=== PATIENT | male | born 1945 | race Caucasian/White ===

== ENCOUNTER 2020-06-16 07:43 | Day surgery (SDC) | payer OTHER, BC ==
[2020-06-11 15:06] VITALS: BMI 19.8
[2020-06-16] MEDS ORDERED: PROPOFOL 20 ML ONE ×3 (07:46)
[2020-06-16] MEDS ORDERED: LIDOCAINE HCL/PF 2% SDV 5ML VIAL ONE (07:46)
--- OUTSIDE RECORDS SUMMARY | 2020-06-16 07:48 | XMS ---
:1945 Author Organization [facility] Team Providers Name Role Phone TEETEE ALDANA Unavailable Unavailable CATHOLIC, HUMBRENT Unavailable Unavailable STAFF, DOCTOR NOT ON Unavailable Unavailable ASHLEY JAMES Unavailable Unavailable SEITERSILVANO Unavailable Unavailable Re-disclosure Warning The records that you are about to access may contain information from federally- assisted alcohol or drug abuse programs. If such information is present, then the following federally mandated warning applies: This information has been disclosed to you from records protected by federal confidentiality rules (42 CFR part 2). The federal rules prohibit you from making any further disclosure of this information unless further disclosure is expressly permitted by the written consent of the person to whom it pertains or as otherwise permitted by 42 CFR part 2. A general authorization for the release of medical or other information is NOT sufficient for this purpose. The Federal rules restrict any use of the information to criminally investigate or prosecute any alcohol or drug abuse patient.The records that you are about to access may contain highly sensitive health information, the redisclosure of which is protected by Article 27-F of the [facility] Public Health law. If you continue you may haveaccess to information: Regarding HIV / AIDS; Provided by facilities licensed or operated by the [facility] Office of Mental Health; or Provided by the [facility] Office for People With Developmental Disabilities. If such information is present, then the following [facility] mandated warning applies: This information has been disclosed to you from confidential records which are protected by state law. State law prohibits you from making any further disclosure of this information without the specific written consent of the person to whom it pertains, or as otherwise permitted by law. Any unauthorized further disclosure in violation of state law may result in a fine or nursing home sentence or both. A general authorization for the release of medical or other information is NOT sufficient authorization for further disclosure. Allergies and Adverse Reactions Type Description Substance Reaction Status Data Source(s ) Drug allergy Penicillins Penicillins Unknown [facility] Corpor[facility] on Drug allergy Penicillins Penicillins UNKNOWN [facility] Hospital Encounters Encounter Providers Location Date Indications Data Source(s ) Outpatient Attender: MEDHAT, [facility]05[facility]2020 [facility] re CATHOLIC, [facility] [employer] HUMAYUNReferrer: SILVANO MELÉNDEZ D69.6 Outpatient Attender: JACOB 02/01/2020 04:41:00 Z01.84 [facility] ThibodeauxAdmitter: [facility] ASHLEY JAMES Corporatio n E.Referrer: ASHLEY JAMES Z01.84 Outpatient Attender: CATHOLIC, 01/28/2020 12:25:00 [facility]69[facility]6 [facility] PM EDT H ealth Care HUMAYUNReferrer: MEDHAT [employer] D69.6 Outpatient Attender: MEDHAT, 01/28/2020 12:18:00 PM D69.6 [facility] rporation D69.6 Outpatient 01/03/2020 06:51:[address]T [address] [facility] N40.3 Outpatient Attender: MEDHAT, 10/30/2019 11:25:00 C[facility] EST [facility] KARENReferrer: MEDHAT, Co rporation SILVANO C96.6 Outpatient Attender: MEDHAT, 10/15/2019 12:58:00 D69.6 [facility] SEITER[facility] PM EST [facility] KARENReferrer: MEDHAT, Co rporation SILVANO D69.6 Outpatient Attender: MEDHAT, 09/18/2019 03:13:00 D69.6 [facility] CATHOLIC, PM EST Hea lth Care HUMAYUNReferrer: Pj MELÉNDEZ D69.6 Outpatient Attender: DOCTOR 12/28/2018 06:54:00 AM N403,BP [facility] STAFF EDT Hospital N403,BPH Outpatient Attender: KATYA, 12/11/2018 I25.10,I71.2 [facility] DERICHERMANAdmitter: KATYA, 06:00:00 AM EDT Health Care JOUAReferrer: Shirley ALDANA orporation TEETEE I25.10,I71.2 Insurance Providers Payer name Policy type Policy ID Covered Covered constitution party's Policy P danisha / Coverage constitution party ID relationship to [employer] [facility] ormation type lewis BC PPO [id number] [place] [id number] MEDICARE [id number] SP [id number] BC INDEMNITY [id number] S [id number] BLUE CROSS [id number] SP [id number] PPO 66 MEDICARE [id number] PT [id number] 4 Problems, Conditions, and Diagnoses Code Display Name Description Problem Type Effective Data Sour ce(s) Dates D69.6 Thrombocytopenia, THROMBOCYTOPENIA, Diagnosis 05/05/2020 [place] unspecified UNSPECIFIED 01:08:00 PM [facility] EDT [employer] Z01.84 Encounter for ENCOUNTER FOR Diagnosis 02/01/2020 [facility] antibody response ANTIBODY RESPONSE 04:41:00 PM [facility] examination EXAMINATION EDT Care [employer] N40.3 Nodular prostate N40.3 Diagnosis 01/03/[address] [place] with lower urinary 06:51:00 AM Hospi anitra tract symptoms EDT N40.0 Benign prostatic N40.0 Diagnosis 01/03/[address] [place] [address] [place] hyperplasia without 06:51:00 AM Hosp ital lower urinary tract EDT symptoms 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, 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, WITHOUT 06:00:00 AM [facility] rupture RUPTURE EDT [employer] I34.0 Nonrheumatic mitral NONRHEUMATIC Diagnosis 12/11/2018 [place] (valve) MITRAL (VALVE) 06:00:00 AM [facility] alth insufficiency INSUFFICIENCY EDT Care [employer] I35.1 Nonrheumatic aortic NONRHEUMATIC Diagnosis 12/11/2018 [place] (valve) AORTIC (VALVE) 06:00:00 AM [facility] alth insufficiency INSUFFICIENCY EDT Care [facility] 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
[2020-06-16 09:25] VITALS: TEMP 98.2
[2020-06-16 10:04] VITALS: BP 112/46; PULSE 56
== END 2020-06-16 10:07 | disposition home or self-care (01) ==
LOC: FASU-ENDO 07:43
PROVIDERS: ATTEND Internal Medicine Gastroenterology
PROC: 0DJD8ZZ Inspection of Lower Intestinal Tract, Via Natural or Artificial Opening Endoscopic (ICD-10-PCS; principal; 2020-06-16 08:55)
DX: Z86.010 Personal history of colon polyps (principal)